=== PATIENT | male | born 1955 | race Caucasian/White ===

== ENCOUNTER → 2021-03-03 01:49 | Outpatient (CLI) | payer OTHER, SELFPAY ==
[2021-03-03 19:24] LABS: SARS-CoV-2 RNA PCR Negative
== END ==
PROVIDERS: PCP Family Medicine; Visit Provider Internal Medicine Gastroenterology
DX: Z01.812 Encounter for preprocedural laboratory examination (principal); Z20.822 Contact with and (suspected) exposure to COVID-19
CPT/HCPCS: C9803; U0003; U0005

== ENCOUNTER 2021-03-06 02:01 | Day surgery (SDC) | payer OTHER, SELFPAY ==
[2021-02-24 14:30] VITALS: BMI 26.8
[2021-03-06 08:22] VITALS: BP 139/98; PULSE 62; RESP 18; TEMP 36.9; O2SAT 98; BMI 27.1
[2021-03-06] MEDS: LACTATED RINGERS 1,000 ML 150 ML IV CONT (08:27)
--- NOTE | 2021-03-06 08:51 | PM.HPGS ---
History of Present Illness History of Present Illness Consent: Risks, benefits, and alternatives have been discussed and questions answered. Patient agrees to proceed with procedure. Chief complaint: neoplasm screening Narrative: Stefano Shaw is a 65 year old male referred for colon cancer screening Review of Systems Review of Systems: All systems reviewed & are unremarkable except as noted in HPI and below PMFSH Surgical History Surgical History H/O neck surgery pinched nurse Family History Family History Father Diabetes mellitus Hypertension Family history of cardiovascular disease Cerebrovascular accident Family history of malignant neoplasm of urinary bladder, Onset Age: 70 Sibling Diabetes mellitus Family history of cardiovascular disease Acute myocardial infarction, Onset Age: 54 Grandparent Family history of cardiovascular disease Carcinoma of colon, Onset Age: 70 Family history of Alzheimer's disease Mother Family history of Alzheimer's disease Family history of atrial fibrillation Social History Social History Smoking status: Former smoker Alcohol intake: current Drinks per week: 6 Alcohol use details: BEERS Substance use: never Substance use type: does not use Living arrangements: with family Spiritual care concerns: No Meds Home Medications and Allergies Home Medications Medication Instructions Recorded Confirmed Type aspirin 81 mg chewable tablet 81 mg PO DAILY 08/01/20 02/24/21 History kqurcosp-qgj-irgmi acid 300 1 tablet PO DAILY 08/01/20 02/24/21 History mcg-lycopene 600 mcg-lutein 300 mcg tablet olmesartan 20 mg tablet 20 mg PO DAILY #30 tablet 10/15/20 03/06/21 Rx Allergies Allergy/AdvReac Type Severity Reaction Status Date / Time NKDA Allergy Mild Unknown Uncoded 02/24/21 14:29 Vital Signs Vital Signs - 24 hr 03/06/21 08:22 Temperature 36.9 C Pulse Rate 62 Respiratory Rate 18 Blood Pressure 139/98 H Pulse Oximetry 98 Exam Resp: Auscultation: clear to auscultation bilaterally Cardio: Rate: regular rate Rhythm: regular rhythm GI: GI Palp: Yes Soft to palpation and No Tenderness to palpation present (GI) Assessment and Plan Assessment and plan (1) Colon cancer screening: Code(s): Z12.11 - Encounter for screening for malignant neoplasm of colon Status: Acute Assessment and Plan: Colonoscopy with possible biopsy or polypectomy or cautery or injection of substances.
--- NOTE | 2021-03-06 09:16 | WPDANESEPPF ---
Anes - Initial Pre Proc Eval Procedure: Operation Date: 03/06/21 09:30 Proposed Procedures p Screening Colonoscopy - Heriberto Pitts MD Date/Time: 03/06/21 09:16 Surgeon: Heriberto Pitts MD Pre Op Diagnosis: neoplasm screening Patient Data Age: 65 Gender: M Height: 6 ft Weight: 90.7 kg Last Vital Signs Temp 36.9 C 03/06/21 08:22 Pulse 62 03/06/21 08:22 Resp 18 03/06/21 08:22 BP 139/98 H 03/06/21 08:22 Pulse Ox 98 03/06/21 08:22 Allergies Allergy/AdvReac Type Severity Reaction Status Date / Time NKDA Allergy Mild Unknown Uncoded 02/24/21 14:29 Home Medications Medication Instructions Recorded Confirmed Type aspirin 81 mg chewable tablet 81 mg PO DAILY 08/01/20 02/24/21 History xwkczccg-swc-errus acid 300 1 tablet PO DAILY 08/01/20 02/24/21 History mcg-lycopene 600 mcg-lutein 300 mcg tablet olmesartan 20 mg tablet 20 mg PO DAILY #30 tablet 10/15/20 03/06/21 Rx Patient hx anesthesia problems: none Family hx anesthesia problems: none PMFSH Past Medical History Medical History Essential (primary) hypertension Hepatitis C virus Surgical History Surgical History H/O neck surgery pinched nurse Family History Family History Father Diabetes mellitus Hypertension Family history of cardiovascular disease Cerebrovascular accident Family history of malignant neoplasm of urinary bladder, Onset Age: 70 Sibling Diabetes mellitus Family history of cardiovascular disease Acute myocardial infarction, Onset Age: 54 Grandparent Family history of cardiovascular disease Carcinoma of colon, Onset Age: 70 Family history of Alzheimer's disease Mother Family history of Alzheimer's disease Family history of atrial fibrillation Social History Social History Smoking status: Former smoker Alcohol intake: current Drinks per week: 6 Alcohol use details: BEERS Substance use: never Substance use type: does not use Living arrangements: with family Spiritual care concerns: No Anes - Eval Final PreProcedure Day of Procedure 03/06/21 09:16 Patient weight: normal Heart: regular rate and rhythm Lungs: clear to auscultation Airway: Mallampati scale class 1 Neurological: alert and oriented Last oral intake: >/= 8 hours ASA classification: II Emergent: no Anesthetic plan: proceed Anesthesia type and monitoring: general GIVS and standard monitoring Informed Consent: The patient's anesthetic plan and its attendant risks and benefits were discussed with the patient/family/POA. Questions were solicited and answers provided to the satisfaction of the patient/family/POA.
[2021-03-06 09:39] VITALS: BP 101/71; PULSE 68; RESP 23; O2SAT 98
[2021-03-06 09:49] VITALS: BP 115/82; PULSE 60; RESP 20; O2SAT 98
[2021-03-06 09:59] VITALS: BP 116/78; PULSE 62; RESP 20; O2SAT 98
== END 2021-03-06 10:07 | disposition home or self-care (01) ==
PROVIDERS: PCP Family Medicine; Visit Provider Internal Medicine Gastroenterology
PROC: 0DJD8ZZ Inspection of Lower Intestinal Tract, Via Natural or Artificial Opening Endoscopic (ICD-10-PCS; CPT 45378; principal; 2021-03-06 09:30)
DX: Z12.11 Encounter for screening for malignant neoplasm of colon (principal); Z87.891 Personal history of nicotine dependence; Z79.82 Long term (current) use of aspirin
CPT/HCPCS: 45378; C9803; J2704; J7120; U0003; U0005